=== PATIENT | female | born 1990 | race African-American/Black ===

== ENCOUNTER 2020-10-03 11:17 | Emergency (ER) | payer SELFPAY ==
[~2020-10-03] VITALS: Ht 160 cm; Wt 49.4 kg
[2020-10-03 11:21] VITALS: BP 123/73
[2020-10-03] MEDS ORDERED: AZITHROMYCIN 250 MG TAB PO ONE (12:25)
[2020-10-03] MEDS ORDERED: cefTRIAXone 500 MG in LIDOCAINE MPF 1% 1 ML IM ONE (12:25)
--- NOTE | 2020-10-03 12:34 | NUR ---
30 YEAR OLD FEMALE COMPLAINS OF DIFFUSE ABDOMINAL PAIN X TODAY. PT DENIES NAUSEA, VOMITTING. PT REFUSES TO ANSWER ANY MORE QUESTIONS AT THIS TIME BY IGNORING THEM. PT AOX4, BREATHING EVEN AND UNLABORED, SKIN WARM AND DRY. BED IN LOWEST POSITION, LOCKED, BED RAIL UPX1. PMH - DENIES ALLERGIES - NKA
[2020-10-03] MEDS ORDERED: cefTRIAXone 500 MG VIAL ONE (12:39)
[2020-10-03] MEDS ORDERED: LIDOCAINE MPF 1% 5 ML ONE (12:39)
--- NOTE | 2020-10-03 12:50 | NUR ---
PT REFUSED MEDICATIONS AND IS STILL UNABLE TO PEE, ERMD MADE AWARE.
[2020-10-03 13:01] LABS: BASOPHILS # (AUTO) 0.1 K/uL (0.00-0.22); BASOPHILS % (AUTO) 1.2 % (0.0-2.0); EOSINOPHILS # (AUTO) 0.1 K/uL (0-0.4); EOSINOPHILS % (AUTO) 0.9 % (0.0-4.0); HEMATOCRIT 29.3 % (36-48); HEMOGLOBIN 9.2 g/dL (12.0-16.0); LYMPHOCYTES # (AUTO) 1.4 K/uL (2.5-16.5); MEAN CORPUSCULAR HEMOGLOBIN 22 pg (27-31); MEAN CORPUSCULAR HGB CONC 31 g/dL (33-37); MEAN CORPUSCULAR VOLUME 69.7 fL (80-94); MONOCYTES # (AUTO) 0.7 K/uL (0.8-1.0); MONOCYTES % (AUTO) 8.6 % (1.7-9.3); NEUTROPHILS # (AUTO) 6.1 K/uL (1.8-7.7); NEUTROPHILS % (AUTO) 72.3 % (42.2-75.2); PLATELET COUNT (AUTO) 378 K/uL (140-450); RED BLOOD CELL COUNT(AUTO) 4.21 MIL/uL (4.20-5.40); RED CELL DISTRIBUTION WIDTH 21.5 % (11.6-13.7); WHITE BLOOD COUNT (AUTO) 8.5 K/uL (4.8-10.8)
[2020-10-03 13:12] LABS: ANION GAP 14.7 (8-16); CARBON DIOXIDE 22.6 mmol/L (21-32); CREATININE 0.7 mg/dL (0.6-1.3); POTASSIUM 3.3 mmol/L (3.5-5.1)
[2020-10-03 13:25] LABS: ALBUMIN 3.6 g/dL (3.4-5.0); TOTAL BILIRUBIN 0.9 mg/dL (0.0-1.0)
--- NOTE | 2020-10-03 13:30 | NUR ---
PT RESTING WITH EYES CLOSED, BREATHING EVEN AND UNLABORED. NO DISTRESS NOTED. PT STATES THAT SHE IS UNABLE TO URINATE AT THIS TIME. ERMD MADE AWARE
--- NOTE | 2020-10-03 14:10 | NUR ---
PT GIVEN FOOD AT THIS TIME. PT ALERT AND AWAKE, BREATHING EVEN AND UNLABORED
--- NOTE | 2020-10-03 14:25 | NUR ---
[employer] SERVER ARCHITECT MEHRAN AT BEDSIDE TALKING TO PT
--- NOTE | 2020-10-03 14:30 | NUR ---
ERMD STATES HE IS FINE WITHOUT URINE FOR DISCHARGE, AND AWARE THAT PT REFUSED MEDICATIONS
--- NOTE | 2020-10-03 14:40 | NUR ---
PT GIVEN FOOD PACKET FOR DISCHARGE, HOMELESS PACKET GIVEN FOR CORRECTION PLACEMENT, CLOTHES APPROPRIATE FOR WEATHER. PT REFUSES TO SIGN DISCHARGE PAPERWORK AND STATES SHE WILL NOT LEAVE. CHARGE NURSE AWARE AND SECURITY CALLED AT THIS TIME
--- NOTE | 2020-10-03 14:47 | NUR ---
PT ESCORTED OUT BY SECURITY AT THIS TIME
[2020-10-03 14:48] VITALS: BP 123/73
[2020-10-03] MEDS ORDERED: ACET-10509 PO (16:42)
[2020-10-03] MEDS ORDERED: CEPH-588 PO (16:42)
== END 2020-10-03 14:47 | disposition home or self-care (01) ==
LOC: MED 11:17
DX: R10.33 Periumbilical pain (principal); R50.9 Fever, unspecified
CPT/HCPCS: 36415; 80053; 83690; 85025; 86703; 99283; J0696; J2001

== ENCOUNTER 2020-10-03 15:22 | Emergency (ER) | payer SELFPAY ==
[~2020-10-03] VITALS: Ht 160 cm; Wt 53.1 kg
[2020-10-03 15:48] VITALS: BP 124/66
--- NOTE | 2020-10-03 16:40 | NUR ---
PT CALLED IN LOBBY, NO ANSWER.
--- NOTE | 2020-10-03 16:40 | NUR ---
David campos in [facility] - 10/03/20 at 1658 by [email or web address] Pt taken to ER bed 12.
[2020-10-03] MEDS ORDERED: ACET-10509 PO (16:42)
[2020-10-03] MEDS ORDERED: CEPH-588 PO (16:42)
--- NOTE | 2020-10-03 16:58 | NUR ---
PATIENT ELOPED FROM FACILITY. DISCHARGE INSTRUCTIONS NOT GIVEN TO PATIENT. DARLENE SABA NOTIFIED.
== END 2020-10-03 16:58 | disposition left against medical advice (07) ==
LOC: MED 15:22
DX: O23.40 Unspecified infection of urinary tract in pregnancy, unspecified trimester (principal); Z79.899 Other long term (current) drug therapy
CPT/HCPCS: 81002; 81025; 87491; 99283